=== PATIENT | male | born 1980 | race Caucasian/White ===

== ENCOUNTER 2020-01-21 12:13 | Emergency (ER) | payer MEDICAID ==
[~2020-01-21] VITALS: Ht 170.2 cm; Wt 72.6 kg
--- NOTE | 2020-01-21 12:15 | NUR ---
PT BIB SELF C/O RIGHT FLANK PAIN SINCE LAST NIGHT, PT IS AAOX4, NOT IN RESPIRATORY DISTRESS, HOOKED TO MONITOR, KEPT RESTED AND COMFORTABLE, WILL CONTINUE TO MONITOR.
--- NOTE | 2020-01-21 12:35 | NUR ---
PT SEEN AND EXAMINED BY .
[2020-01-21] MEDS ORDERED: ONDANSETRON HCL/PF 4 MG/2 ML VIAL ONE (12:40)
[2020-01-21] MEDS ORDERED: KETOROLAC TROMETHAMINE 15 MG/ML VIAL ONE (12:40)
--- NOTE | 2020-01-21 12:40 | NUR ---
URINE SPECIMEN COLLECTED AND SENT TO LAB.
[2020-01-21] MEDS ORDERED: ACETAMINOPHEN ES 500 MG TABLET ONE (12:41)
--- NOTE | 2020-01-21 12:56 | NUR ---
line started on L ac g 20, blood drawn from line and sent to lab
[2020-01-21] MEDS ORDERED: ONDANSETRON HCL/PF 4 MG/2 ML VIAL IVP ONE (13:00)
[2020-01-21] MEDS ORDERED: ACETAMINOPHEN ES 500 MG TABLET PO ONE (13:00)
[2020-01-21] MEDS ORDERED: KETOROLAC TROMETHAMINE INJ 30 MG/ML VIAL IV ONE (13:00)
[2020-01-21] MEDS ORDERED: IV NS 0.9% 1,000 ML BAG IV ONE (13:00)
[2020-01-21 13:02] LABS: APPEARANCE,URINE Clear (CLEAR); BASOPHILS # (AUTO) 0.1 /CMM (0.0-0.2); BASOPHILS % (AUTO) 0.5 % (0.0-2.0); BILIRUBIN,URINE SMALL (NEGATIVE); BLOOD, URINE Trace-lysed Ery/uL (NEGATIVE); COLOR,URINE Yellow (YELLOW); HEMATOCRIT 47 % (39-51); HEMOGLOBIN 15.8 g/dL (13.5-17.5); KETONES,URINE 15 (NEGATIVE); LEUKOCYTE ESTERASE ,URINE Negative (NEGATIVE); LYMPHOCYTES # (AUTO) 1.4 /CMM (0.8-4.8); LYMPHOCYTES % (AUTO) 10.2 % (20.0-44.0); MEAN CORPUSCULAR HGB CONC 34 g/dl (31.0-36.0); MEAN CORPUSCULAR VOLUME 100 fL (80-96); MONOCYTES # (AUTO) 1.2 /CMM (0.1-1.30); MONOCYTES % (AUTO) 8.3 % (2.0-12.0); NEUTROPHILS # (AUTO) 11.4 /CMM (1.8-8.9); NITRITE, URINE Negative (NEGATIVE); PLATELET COUNT (AUTO) 436 /CMM (150-450); PROTEIN,URINE 30 mg/dl (NEGATIVE); RED BLOOD CELL COUNT(AUTO) 4.74 MIL/uL (4.5-6.0); UGLUCOSE Negative (NEGATIVE); UROBILINOGEN,URINE 0.2 EU/dL (0.2); WHITE BLOOD COUNT (AUTO) 14.1 K/uL (4.3-11.0)
[2020-01-21 13:03] LABS: BACTERIA,URINE Rare /HPF (None Seen); SQUAMOUS EPITHELIAL CELL,UR None Seen /HPF (None Seen); WBC,URINE 0-2 /HPF (0-3)
[2020-01-21 13:21] LABS: ALBUMIN 4.6 g/dL (3.4-5.0); BILIRUBIN,DIRECT 0.1 mg/dL (0.0-0.2); BILIRUBIN,TOTAL 0.8 mg/dL (0.2-1.0); CALCIUM, SERUM 9.7 mg/dL (8.5-10.1); CREATININE 1.7 mg/dL (0.6-1.3); POTASSIUM 3.5 mmol/L (3.5-5.1); TOTAL PROTEIN, SERUM 8.1 g/dL (6.4-8.2)
[2020-01-21] MEDS ORDERED: MORPHINE SULFATE INJ 2 MG/ML DISP.SYRIN IV ONE (13:30)
[2020-01-21] MEDS ORDERED: MORPHINE SULFATE INJ 4 MG/ML DISP.SYRIN ONE (13:38)
--- NOTE | 2020-01-21 13:38 | NUR ---
PT IS BACK FROM THE CT SCAN.
[2020-01-21] MEDS ORDERED: LORAZEPAM INJ 2 MG/ML VIAL IV ONE (14:00)
[2020-01-21] MEDS ORDERED: LORAZEPAM INJ 2 MG/ML VIAL ONE (14:13)
[2020-01-21] MEDS ORDERED: FENTANYL PF 100MCG/2ML AMPUL ONE (14:13)
[2020-01-21] MEDS ORDERED: FENTANYL PF 100MCG/2ML AMPUL IV ONE (14:30)
--- NOTE | 2020-01-21 14:59 | NUR ---
IV removed. Catheter intact and site benign. Pressure and 4x4 applied to site. No bleeding noted. Patient discharged to home in stable condition. Written and verbal after care instructions given. Patient verbalizes understanding of instruction.
[2020-01-21 15:00] VITALS: BP 131/88
== END 2020-01-21 15:01 | disposition home or self-care (01) ==
LOC: ER 12:13
DX: K52.9 Noninfective gastroenteritis and colitis, unspecified (principal); N17.9 Acute kidney failure, unspecified; F17.200 Nicotine dependence, unspecified, uncomplicated; Z88.0 Allergy status to penicillin; Z91.018 Allergy to other foods; Z60.2 Problems related to living alone
CPT/HCPCS: 36415; 74176; 80048; 80076; 81001; 83690; 85025; 96361; 96374; 96375; 99284; J1885; J2060; J2270; J2405; J3010; J7030; 81000-TC